=== PATIENT | female | born 1950 | race Caucasian/White ===

== ENCOUNTER 2023-11-21 10:13 | Emergency (ER) | payer MEDICARE, MEDICAID ==
[2023-11-21 10:27] VITALS: RESP 18; TEMP 98.2
[2023-11-21] MEDS: Trandate 100 MG PO ONE ×2 (11:00→11:01)
--- NOTE | 2023-11-21 11:08 | ERPHSYRPT ---
- History of Present Illness Time Seen by Provider: 11/21/23 11:02 Source: patient Exam Limitations: no limitations Patient Subjective Stated Complaint: pt here for left leg pain from groin to ankle for 2 days now, no injury. Triage Nursing Assessment: pt alert, walked in, resp easy, skin w/d/p. moves all ext well. No redness,edema noted Physician History: Patient is 73-year-old female without any significant past medical history recently moved to [place] started having a pain in her left leg and left thigh for at least last week or so. She denies any other symptoms. When she came to the emergency room her blood pressure was very high 180/100. She does not take any medication and she denies any other medical history. Timing/Duration: day(s) (2-7 days) Severity: mild Associated Symptoms: denies symptoms Allergies/Adverse Reactions: codeine Allergy (Verified 11/21/23 10:27) Penicillins Allergy (Verified 11/21/23 10:27) Sulfa (Sulfonamide Antibiotics) Allergy (Verified 11/21/23 10:27) Hx Influenza Vaccination/Date Given: No Hx Pneumococcal Vaccination/Date Given: No Immunizations Up to Date: Yes Travel Risk - International Travel Have you traveled outside of the country in past 3 weeks: No - Emerging Infectious Disease Are you exhibiting symptoms associated with any current EIDs: No - Review of Systems Constitutional: No Fever, No Chills Eyes: No Symptoms Ears, Nose, & Throat: No Symptoms Respiratory: No Cough, No Dyspnea Cardiac: No Chest Pain, No Edema, No Syncope Abdominal/Gastrointestinal: No Abdominal Pain, No Nausea, No Vomiting, No D iarrhea Genitourinary Symptoms: No Dysuria Musculoskeletal: Other (left leg pain), No Back Pain, No Neck Pain Skin: No Rash Neurological: No Dizziness, No Focal Weakness, No Sensory Changes Psychological: No Symptoms Endocrine: No Symptoms All Other Systems: Reviewed and Negative - Past Medical History Pertinent Past Medical History: Yes Musculoskeletal History: Arthritis - Past Surgical History Past Surgical History: Yes Gastrointestinal: Appendectomy Musculoskeletal: Orthopedic Surgery Female Surgical History: Tubal Ligation - Social History Smoking Status: Current every day smoker Exposure to second hand smoke: Yes Drug Use: none - Nursing Vital Signs Nursing Vital Signs: Initial Vital Signs Temperature 98.2 F 11/21/23 10:25 Pulse Rate 80 11/21/23 10:25 Respiratory Rate 18 11/21/23 10:25 Blood Pressure 183/112 11/21/23 10:25 O2 Sat by Pulse Oximetry 96 11/21/23 10:25 Pain Scale Pain Intensity 4 - Physical Exam General Appearance: no apparent distress, alert Eye Exam: PERRL/EOMI, eyes nml inspection Ears, Nose, Throat Exam: normal ENT inspection, TMs normal, pharynx normal, moist mucous membranes Neck Exam: normal inspection, non-tender, supple, full range of motion Respiratory Exam: normal breath sounds, lungs clear, No respiratory distress Cardiovascular Exam: regular rate/rhythm, normal heart sounds, normal peripheral pulses Gastrointestinal/Abdomen Exam: soft, normal bowel sounds, No tenderness, No mass Back Exam: normal inspection, normal range of motion, No CVA tenderness, No vertebral tenderness Extremity Exam: normal inspection, normal range of motion, pelvis stable, No calf tenderness, No parasthesia, No maynor's sign, No inflammation, No limited range of motion, No pedal edema, No swelling, No tenderness Neurologic Exam: alert, oriented x 3, cooperative, normal mood/affect, nml cerebellar function, nml station & gait, sensation nml, No motor deficits Skin Exam: normal color, warm, dry, No rash Lymphatic Exam: No adenopathy SpO2: 96 - Course Nursing assessment & vital signs reviewed: Yes Ordered Tests: Active Orders 24 hr Category Date Time Status EKG-ER Only STAT Care 11/21/23 10:37 Active CHEST 2 VIEWS (PA AND LAT) Stat Exams 11/21/23 10:48 Taken CHEST WITH CONTRAST [CT] Stat Exams 11/21/23 12:03 Completed CHEST WITHOUT CONTRAST [CT] Stat Exams 11/21/23 12:03 Completed CBC W DIFF Stat Lab 11/21/23 11:05 Completed CMP Stat Lab 11/21/23 11:05 Completed D-DIMER QUANTITATIVE Stat Lab 11/21/23 11:05 Completed MAGNESIUM Stat Lab 11/21/23 11:05 Completed TROPONIN Stat Lab 11/21/23 11:05 Completed Medication Summary Generic Name Dose Route Start Last Admin Trade Name Freq PRN Reason Stop Dose Admin Rivaroxaban 15 mg 11/21/23 22:00 11/21/23 13:32 Rivaroxaban 10 Mg Tablet PO 12/21/23 21:59 15 mg BID BAUDILIO Administration Discontinued Medications Generic Name Dose Route Start Last Admin Trade Name Jai PRN Reason Stop Dose Admin Labetalol HCl 100 mg 11/21/23 10:37 11/21/23 11:01 Labetalol Hcl 100 Mg Tablet PO 11/21/23 10:38 Not Given STAT ONE Labetalol HCl 50 mg 11/21/23 11:00 11/21/23 11:00 Labetalol Hcl 100 Mg Tablet PO 11/21/23 11:01 50 mg STAT ONE Administration Rivaroxaban 20 mg 11/21/23 12:41 11/21/23 13:31 Rivaroxaban 10 Mg Tablet PO 11/21/23 12:42 20 mg ONCE ONE Administration Lab/Rad Data: Laboratory Result Diagrams 11/21/23 11:05 11/21/23 11:05 Laboratory Results 11/21/23 11/21/23 11/21/23 Range/Units 11:05 11:05 11:05 WBC 5.9 (4.0-10.5) x10^3/uL RBC 5.74 H (4.1-5.4) x10^6/uL Hgb 16.5 H (12.0-16.0) g/dL Hct 49.7 H (35-47) % MCV 86.6 (78-100) fL MCH 28.7 (26-32) pg MCHC 33.2 (32-36) g/dL RDW 12.7 (11.5-14.0) % Plt Count 257 (150-450) x10^3/uL MPV 11.0 (7.5-11.0) fL Gran % 60.0 (36.0-66.0) % Immature Gran % (Auto) 0.2 (0.00-0.4) % Nucleat RBC Rel Count 0.0 (0.00-0.1) % Eos # (Auto) 0.10 (0-0.5) x10^3/uL Immature Gran # (Auto) 0.01 (0.00-0.03) x10^3u/L Absolute Lymphs (auto) 1.94 (1.0-4.6) x10^3/uL Absolute Monos (auto) 0.27 (0.0-1.3) x10^3/uL Absolute Nucleated RBC 0.00 (0.00-0.01) x10^3u/L Lymphocytes % 33.0 (24.0-44.0) % Monocytes % 4.6 (0.0-12.0) % Eosinophils % 1.7 (0.00-5.0) % Basophils % 0.5 (0.0-0.4) % Absolute Granulocytes 3.53 (1.4-6.9) x10^3/uL Basophils # 0.03 (0-0.4) x10^3/uL D-Dimer 1.62 H* (0.0-0.50) mg/L Sodium 143 (135-145) mmol/L Potassium 3.8 (3.5-5.1) mmol/L Chloride 108 H (98-107) mmol/L Carbon Dioxide 24 (22-30) mmol/L Anion Gap 14.3 (5-15) MEQ/L BUN 17 (7-17) mg/dL Creatinine 0.70 (0.52-1.04) mg/dL Estimated GFR 91.8 ML/MIN Glucose 121 H (74-106) mg/dL Calcium 9.3 (8.4-10.2) mg/dL Magnesium 2.1 (1.6-2.3) mg/dL Total Bilirubin 0.50 (0.2-1.3) mg/dL AST 22 (14-36) U/L ALT 20 (0-35) U/L Alkaline Phosphatase 88 (38-126) U/L Troponin I < 0.012 (0.000-0.033) ng/mL Serum Total Protein 8.1 (6.3-8.2) g/dL Albumin 4.6 (3.5-5.0) g/dL 0002 CT/CHEST WITH CONTRAST CLINICAL HISTORY: leg pain, elevated D dimer COMPARISON: None. TECHNIQUE: Spiral axial continuous cuts were taken through the chest with multiplanar reformatting and with intravenous administration of contrast 80 cc Isovue 370 (Pulmonary embolism protocol). One of the following dose reduction techniques was utilized for this exam: Automated exposure control, adjustment of the mA and/or kV according to patient size, and use of iterative reconstruction. FINDINGS: Normal course and caliber of the main pulmonary trunk, right and left pulmonary arteries with adequate opacification. No evidence of intraluminal filling defects impressive of pulmonary embolism, no evidence of mural calcification or aneurismal dilatation. Mild centriacinar emphysematous changes with small scattered air bullae. A few small pulmonary nodules are seen the largest at the apical segment of the left lower lung lobe (4 mm) with small calcification, and at the posterior segment of the left lower lung lobe (7 mm) with small calcification and adjacent atelectasis. No evidence of masses or consolidation. The vascular pattern appears normal with no evidence of bronchovascular distortion. Mildly enlarged mediastinal lymph nodes, likely reactive, and small calcified left infra hilar lymph nodes are also noted. One of these measures 1.5cm. Atheromatous calcifications of the thoracic aorta and coronary arteries. Normal cardiac size and shape with no pericardial effusion. The visualized pleural sacs, chest wall, and axillary spaces display normal appearance. Bone window settings showed no evidence of destructive bony lesions. Thoracic spondylotic changes with T12/L1 posterior disc osteophyte complex. Scanned upper abdominal cuts are unremarkable. Small calcified splenic granulomas. Large hiatus hernia with wall thickening and small calcification. IMPRESSION: 1. The study is negative for pulmonary embolism. 2. Mild centriacinar emphysematous changes with small scattered air bullae. 3. A few small pulmonary nodules are seen the largest at the apical segment of the left lower lung lobe (4 mm) with small calcification, and at the posterior segment of the left lower lung lobe (7 mm) with small calcification and adjacent atelectasis. Likely sequelae of old granulomatous infection, advise clinical correlation and follow-up. 4. Large hiatus hernia with wall thickening, advise clinical correlation and endoscopy if clinically warranted. CT/CHEST WITHOUT CONTRAST CLINICAL HISTORY: leg pain, elevated D dimer COMPARISON: None. TECHNIQUE: Contiguous, multislice, noncontrast CT scan of the chest was performed in the axial plane with multiplanar reconstructions. One of the following dose reduction techniques was utilized for this exam: Automated exposure control, adjustment of the mA and/or kV according to patient size, and use of iterative reconstruction. FINDINGS: Mild centriacinar emphysematous changes with small scattered air bullae. A few small pulmonary nodules are seen the largest at the apical segment of the left lower lung lobe (4 mm) with small calcification, and at the posterior segment of the left lower lung lobe (7 mm) with small calcification and adjacent atelectasis. No evidence of masses or consolidation. The vascular pattern appears normal with no evidence of bronchovascular distortion. Mildly enlarged mediastinal lymph nodes, likely reactive, and small calcified left infra hilar lymph nodes are also noted. One of these measures 1.5cm. Atheromatous calcifications of the thoracic aorta and coronary arteries. Normal cardiac size and shape with no pericardial effusion. The visualized pleural sacs, chest wall, and axillary spaces display normal appearance. Bone window settings showed no evidence of destructive bony lesions. Thoracic spondylotic changes with T12/L1 posterior disc osteophyte complex. Scanned upper abdominal cuts are unremarkable. Small calcified splenic granulomas. Large hiatus hernia with wall thickening and small calcification. IMPRESSION: 1. Mild centriacinar emphysematous changes with small scattered air bullae. 2. A few small pulmonary nodules are seen the largest at the apical segment of the left lower lung lobe (4 mm) with small calcification, and at the posterior segment of the left lower lung lobe (7 mm) with small calcification and adjacent atelectasis. Likely sequelae of old granulomatous infection, advise clinical correlation and follow-up. 3. No evidence of consolidation or masses was seen. 4. Large hiatus hernia with wall thickening, advise clinical correlation and endoscopy if clinically warranted. - Progress Progress: improved Counseled pt/family regarding: lab results, diagnosis, need for follow-up, rad results - Departure Departure Disposition: Home Clinical Impression: Diffuse pain in left lower extremity, Elevated blood pressure reading Condition: Stable Critical Care Time: No Referrals: CHRISTIANA MARIE MD [Emergency Provider] - Follow up with PCP 2 days Additional Instructions: During your emergency room visit one of the blood tests was probably suggestive of blood clot so we did a CAT scan on your lungs which is negative for blood clots in your lung. We have schedule ultrasound of your left lower extremity to rule out blood clot in your vein which is scheduled tomorrow at 10:00 in the morning at [facility]. Please come to radiology department for that testing. Till then take Xarelto 15 mg twice a day you can start next dose tomorrow morning as we have already given you 20 mg in the emergency room for today's dose. Follow-up with Dr. Landa on Wednesday for results. Your blood pressure has been also running little bit high so please check your blood pressure at home and talk to your physician when you go and see him. Discharge/Care Plan WALLACE MORELAND was seen on 11/21/23 in the Emergency Room. The patient was counseled regarding Diagnosis,Lab results, Imaging studies, need for follow up and when to return to the Emergency Room. Prescriptions given: Discharge Note I have spoken with the patient and/or caregivers. I have explained the patient's condition, diagnosis and treatment plan based on the information available to me at this time. I have answered the patient's and/or caregiver's questions and addressed any concerns. The patient and/or caregivers have as good understanding of the patient's diagnosis, condition and treatment plan as can be expected at this point. The vital signs have been stable. The patient's condition is stable and appropriate for discharge from the emergency department. The patient will pursue further outpatient evaluation with the primary care physician or other designated or consulting physician as outlined in the discharge instructions. The patient and/or caregivers are agreeable to this plan of care and follow-up instructions have been explained in detail. The patient and/or caregivers have received these instruction. The patient/and or caregivers are aware that any significant change in condition or worsening of symptoms should prompt an immediate return to this or the closest emergency department or call 911. WALLACE MORELAND was seen on 11/21/23 n the Emergency Room. At that time you were treated for an emergent condition, during your visit Laboratory, Radiology and/or other procedures may have been ordered. It is very important that you follow-up with your Primary Care Physician NO FAMILY DOCTOR within the next 24- 48 hours to review your Emergency Room visit and the final results of testing that was ordered. Some test results such as Urine Cultures, Blood Cultures, and other cultures if ordered will not be finalized for 24-48 hours. If you do not have a Primary Care Provider please call the medical records department at [phone] ext [phone] to obtain a copy of your results or you may sign into our patient portal to obtain these results by visiting us @ [email or web address] and completing the following steps: 1. Click on the Patient Portal link 2. Click the Patient Self Enrollment Link to complete the enrollment form and entering your 3. Once the enrollment form is completed you will receive an email with a temporary ID and password at the email address you provided. 4. Next choose a user name and password. Your user name must be at least 4 characters long and your password must be at least 4 characters long. 5. Choose a security question from the list and provide your answer to the question. If you already have signed into the Health Portal you may access your Health Care Information 01/02 by the following steps: 1. Login to our website @ [email or web address] 2. Enter your original user name and password. FAQS The [facility] and the [facility] Portal is an online tool that contains your Lab Results, Radiology Reports, Visit History, Discharge Instructions and Health Summary Lab and Radiology Results will not be available for 72 hours on the portal. The Portal is a secure site, passwords are encryted and URLs are re-written so they cannot be copied and pasted. You and authorized family members are the only ones who can access your Portal. Also there is a timeout feature that protects your information if you leave the Portal page open. If you have technical difficulty please use the Contact Us link on the page this will allow you to submit any questions you have regarding the Portal or you may contact the Medical Record Department at [phone] ext [phone]. Prescriptions: Rivaroxaban [Xarelto] 15 mg PO BID #14 tablet
[2023-11-21 11:10] LABS: Absolute Neutrophil Ct (ANC) 3.53 x10^3/uL (1.4-6.9); BASOPHIL % 0.5 % (0.0-0.4); Basophil (Absolute #) 0.03 x10^3/uL (0-0.4); Eosinophil % 1.7 % (0.00-5.0); Hematocrit 49.7 % (35-47); Hemoglobin 16.5 g/dL (12.0-16.0); IMMATURE GRAN # 0.01 x10^3u/L (0.00-0.03); IMMATURE GRAN % 0.2 % (0.00-0.4); Lymphocyte (Absolute #) 1.94 x10^3/uL (1.0-4.6); Mean Cell Volume 86.6 fL (78-100); Mean Corpuscular Hemoglobin 28.7 pg (26-32); Mean Corpuscular Hgb Concent. 33.2 g/dL (32-36); Monocyte (Absolute #) 0.27 x10^3/uL (0.0-1.3); Monocytes % 4.6 % (0.0-12.0); Platelet Count 257 x10^3/uL (150-450); Red Blood Count 5.74 x10^6/uL (4.1-5.4); Red Cell Distribution Width 12.7 % (11.5-14.0); White Blood Count 5.9 x10^3/uL (4.0-10.5)
[2023-11-21 11:35] LABS: ALBUMIN 4.6 g/dL (3.5-5.0); ALKALINE PHOSPHATASE 88 U/L (38-126); ANION GAP 14.3 MEQ/L (5-15); BLOOD UREA NITROGEN 17 mg/dL (7-17); CHLORIDE 108 mmol/L (98-107); Calcium 9.3 mg/dL (8.4-10.2); Carbon Dioxide 24 mmol/L (22-30); EST GLOMERULAR FILTRATION RATE 91.8 ML/MIN; Glucose 121 mg/dL (74-106); MAGNESIUM 2.1 mg/dL (1.6-2.3); Potassium 3.8 mmol/L (3.5-5.1); SGOT/AST 22 U/L (14-36); SGPT/ALT 20 U/L (0-35); SODIUM 143 mmol/L (135-145); TROPONIN < 0.012 ng/mL (0.000-0.033); Total Protein 8.1 g/dL (6.3-8.2)
[2023-11-21 12:01] VITALS: PULSE 78
[2023-11-21 12:46] VITALS: O2SAT 96
[2023-11-21] MEDS: XARELTO 10 MG TABLET PO ONE (13:31)
[2023-11-21] MEDS: XARELTO 10 MG TABLET PO SCH (13:32)
--- NOTE | 2023-11-21 13:43 | XRAY ---
CLINICAL HISTORY: leg pain, elevated D dimer COMPARISON: None. TECHNIQUE: Contiguous, multislice, noncontrast CT scan of the chest was performed in the axial plane with multiplanar reconstructions. One of the following dose reduction techniques was utilized for this exam: Automated exposure control, adjustment of the mA and/or kV according to patient size, and use of iterative reconstruction. FINDINGS: Mild centriacinar emphysematous changes with small scattered air bullae. A few small pulmonary nodules are seen the largest at the apical segment of the left lower lung lobe (4 mm) with small calcification, and at the posterior segment of the left lower lung lobe (7 mm) with small calcification and adjacent atelectasis. No evidence of masses or consolidation. The vascular pattern appears normal with no evidence of bronchovascular distortion. Mildly enlarged mediastinal lymph nodes, likely reactive, and small calcified left infra hilar lymph nodes are also noted. One of these measures 1.5cm. Atheromatous calcifications of the thoracic aorta and coronary arteries. Normal cardiac size and shape with no pericardial effusion. The visualized pleural sacs, chest wall, and axillary spaces display normal appearance. Bone window settings showed no evidence of destructive bony lesions. Thoracic spondylotic changes with T12/L1 posterior disc osteophyte complex. Scanned upper abdominal cuts are unremarkable. Small calcified splenic granulomas. Large hiatus hernia with wall thickening and small calcification. IMPRESSION: 1. Mild centriacinar emphysematous changes with small scattered air bullae. 2. A few small pulmonary nodules are seen the largest at the apical segment of the left lower lung lobe (4 mm) with small calcification, and at the posterior segment of the left lower lung lobe (7 mm) with small calcification and adjacent atelectasis. Likely sequelae of old granulomatous infection, advise clinical correlation and follow-up. 3. No evidence of consolidation or masses was seen. 4. Large hiatus hernia with wall thickening, advise clinical correlation and endoscopy if clinically warranted. Electronically Signed by: Jayson Morrison MD. (11/21/2023 13:39:59 EDT)
--- NOTE | 2023-11-21 13:47 | XRAY ---
CLINICAL HISTORY: leg pain, elevated D dimer COMPARISON: None. TECHNIQUE: Spiral axial continuous cuts were taken through the chest with multiplanar reformatting and with intravenous administration of contrast 80 cc Isovue 370 (Pulmonary embolism protocol). One of the following dose reduction techniques was utilized for this exam: Automated exposure control, adjustment of the mA and/or kV according to patient size, and use of iterative reconstruction. FINDINGS: Normal course and caliber of the main pulmonary trunk, right and left pulmonary arteries with adequate opacification. No evidence of intraluminal filling defects impressive of pulmonary embolism, no evidence of mural calcification or aneurismal dilatation. Mild centriacinar emphysematous changes with small scattered air bullae. A few small pulmonary nodules are seen the largest at the apical segment of the left lower lung lobe (4 mm) with small calcification, and at the posterior segment of the left lower lung lobe (7 mm) with small calcification and adjacent atelectasis. No evidence of masses or consolidation. The vascular pattern appears normal with no evidence of bronchovascular distortion. Mildly enlarged mediastinal lymph nodes, likely reactive, and small calcified left infra hilar lymph nodes are also noted. One of these measures 1.5cm. Atheromatous calcifications of the thoracic aorta and coronary arteries. Normal cardiac size and shape with no pericardial effusion. The visualized pleural sacs, chest wall, and axillary spaces display normal appearance. Bone window settings showed no evidence of destructive bony lesions. Thoracic spondylotic changes with T12/L1 posterior disc osteophyte complex. Scanned upper abdominal cuts are unremarkable. Small calcified splenic granulomas. Large hiatus hernia with wall thickening and small calcification. IMPRESSION: 1. The study is negative for pulmonary embolism. 2. Mild centriacinar emphysematous changes with small scattered air bullae. 3. A few small pulmonary nodules are seen the largest at the apical segment of the left lower lung lobe (4 mm) with small calcification, and at the posterior segment of the left lower lung lobe (7 mm) with small calcification and adjacent atelectasis. Likely sequelae of old granulomatous infection, advise clinical correlation and follow-up. 4. Large hiatus hernia with wall thickening, advise clinical correlation and endoscopy if clinically warranted. Electronically Signed by: Jayson Morrison MD. (11/21/2023 13:42:47 EDT)
[2023-11-21 13:48] VITALS: BP 140/96
--- NOTE | 2023-11-21 17:53 | XRAY ---
Indication: Leg pain. Comparison: None PA/lateral chest hyperinflated and clear. Heart and mediastinal structures within normal limits. Bony thorax intact with osteopenia and mild degenerative changes. Impression: Nonacute hyperinflated chest with chronic features.
== END 2023-11-21 14:20 | disposition home or self-care (01) ==
LOC: ED 10:13
DX: M79.605 Pain in left leg (principal); R03.0 Elevated blood-pressure reading, without diagnosis of hypertension; Z79.01 Long term (current) use of anticoagulants; Z72.0 Tobacco use
CPT/HCPCS: 36415; 71046; 71250; 71260; 80053; 83735; 84484; 85025; 85379; 93005; 99284; A9270-GY